=== PATIENT | female | born 2000 | race Caucasian/White ===

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

== ENCOUNTER 2021-04-11 14:58 | Emergency (ER) | payer OTHER ==
[~2021-04-11] VITALS: Ht 154.9 cm; Wt 49.9 kg
[~2021-04-11 14:58] MED LIST changes: +CEPHALEXIN500 M1 PO; +NAPROXEN250 MG PO; +TYLENOL325 M1 PO
[2021-04-11 15:04] VITALS: BP 124/73
[2021-04-11 16:07] LABS: BILIRUBIN Negative (Negative); BLOOD Negative (Negative); CLARITY Clear (Clear); COLOR Yellow (Yellow); GLUCOSE Negative (Negative); KETONE Negative (Negative); LEUKO ESTERASE Negative (Negative); NITRITE Negative (Negative); PH 6.5 (4.5-8.0); SPECIFIC GRAVITY 1.015 (1.001-1.030)
[2021-04-11 16:24] LABS: BACTERIA 2+
[2021-04-11 16:44] LABS: HEMATOCRIT 37.7 % (37.0-47.0); MEAN CELL VOLUME 91.1 fl (81.0-99.0); MEAN CORPUSCULAR HGB 29.5 pg (27.0-31.0); MEAN CORPUSCULAR HGB CONC 32.4 g/dl (33.0-37.0); MEAN PLATELET VOLUME 11.1 fl (9.6-12.3); PLATELET COUNT AUTOMATED 201 10*3/uL (130-400); RED BLOOD COUNT 4.14 10*6/uL (4.10-5.10); RED CELL DISTRI WIDTH 12.5 % (0-14.5); WHITE BLOOD COUNT 2.7 10*3/uL (4.8-10.8)
[2021-04-11 16:57] LABS: BUN 7 mg/dl (7-24); CHLORIDE 111 mmol/L (98-107); CREATININE 0.63 mg/dL (0.55-1.02); POTASSIUM 3.8 mmol/L (3.5-5.1); SODIUM 139 mmol/L (136-145)
[2021-04-11 17:18] LABS: ATYPICAL LYMPHS 1 % (0-0); BASOPHILS 2 % (0-1); BURR CELLS FEW; PLATELET SUFFICIENCY NORMAL (NORMAL); TOTAL CELLS COUNTED 100 #CELLS
[2021-04-11] MEDS ORDERED: ZOFRAN4 MG PO (17:34)
== END 2021-04-11 21:12 | disposition home or self-care (01) ==
LOC: ED 14:58
PROVIDERS: Emergency Medicine; Nurse Practitioner Family
DX: R50.9 Fever, unspecified (principal); Z20.822 Contact with and (suspected) exposure to COVID-19

== ENCOUNTER 2022-04-17 14:53 | Emergency (ER) | payer OTHER ==
[~2022-04-17] VITALS: Ht 154.9 cm; Wt 47.2 kg
[~2022-04-17 14:53] MED LIST changes: +ZOFRAN4 MG PO
[2022-04-17 15:12] VITALS: BP 127/67
== END 2022-04-17 15:41 | disposition home or self-care (01) ==
LOC: ED 14:53
DX: J40 Bronchitis, not specified as acute or chronic (principal); Z20.822 Contact with and (suspected) exposure to COVID-19

== ENCOUNTER 2022-10-18 23:16 | Emergency (ER) | payer OTHER ==
[~2022-10-18] VITALS: Ht 154.9 cm; Wt 49.0 kg
[2022-10-18 23:26] VITALS: BP 154/84
[2022-10-18] MEDS ORDERED: KEFLEX 500 MG E2 CAP PO (23:41)
== END 2022-10-18 23:47 | disposition home or self-care (01) ==
LOC: ED 23:16
DX: S90.812A Abrasion, left foot, initial encounter (principal); L03.115 Cellulitis of right lower limb; X58.XXXA Exposure to other specified factors, initial encounter; Y93.89 Activity, other specified; Y92.89 Other specified places as the place of occurrence of the external cause; Y99.8 Other external cause status

== ENCOUNTER 2023-09-25 15:39 | Emergency (ER) | payer BC ==
[~2023-09-25] VITALS: Ht 154.9 cm; Wt 49.9 kg
[~2023-09-25 15:39] MED LIST changes: +KEFLEX 500 MG E2 CAP PO
[2023-09-25 16:09] VITALS: BP 112/60
== END 2023-09-25 17:16 | disposition home or self-care (01) ==
LOC: ED 15:39
DX: S90.112A Contusion of left great toe without damage to nail, initial encounter (principal); W20.8XXA Other cause of strike by thrown, projected or falling object, initial encounter; Y93.89 Activity, other specified; Y92.89 Other specified places as the place of occurrence of the external cause; Y99.8 Other external cause status

== ENCOUNTER 2023-11-10 16:43 | Emergency (ER) | payer BC ==
[~2023-11-10] VITALS: Ht 154.9 cm; Wt 47.6 kg
[2023-11-10 16:55] VITALS: BP 105/59
[2023-11-10] MEDS ORDERED: Ketorolac Tromethamine 30 MG/ML VIAL IM ONE (17:15)
[2023-11-10] MEDS ORDERED: MELOXICAM15 MG PO (17:20)
== END 2023-11-10 18:29 | disposition home or self-care (01) ==
LOC: ED 16:43
DX: R09.1 Pleurisy (principal); R05.9 Cough, unspecified; F17.200 Nicotine dependence, unspecified, uncomplicated

== ENCOUNTER 2024-04-16 18:03 | Emergency (ER) | payer BC ==
[~2024-04-16 18:03] MED LIST changes: +MELOXICAM15 MG PO
[2024-04-16 18:20] VITALS: BP 125/77
[2024-04-16 18:34] LABS: BILIRUBIN Negative (Negative); BLOOD 3+ (Negative); CLARITY Cloudy (Clear); COLOR Red (Yellow); GLUCOSE Negative (Negative); KETONE Negative (Negative); LEUKO ESTERASE 3+ (Negative); NITRITE Negative (Negative); PH 7.5 (4.5-8.0); UROBILINOGEN 0.2 E.U./dl (0.0-1.0)
[2024-04-16 18:43] LABS: RBC TNTC rbc/hpf (0-2); WBC TNTC wbc/hpf (0-5)
[2024-04-16] MEDS ORDERED: Sulfamethoxazole/Trimethopri 1 TAB TAB PO ONE (18:55)
[2024-04-16] MEDS ORDERED: SEPTDS PO (18:58)
== END 2024-04-16 19:32 | disposition home or self-care (01) ==
LOC: ED 18:03
PROVIDERS: Internal Medicine
DX: N39.0 Urinary tract infection, site not specified (principal); Z88.8 Allergy status to other drugs, medicaments and biological substances; Z98.890 Other specified postprocedural states

== ENCOUNTER 2024-08-01 10:59 | Emergency (ER) | payer BC ==
[~2024-08-01] VITALS: Ht 154.9 cm; Wt 49.0 kg
[~2024-08-01 10:59] MED LIST changes: +SEPTDS PO
[2024-08-01] MEDS ORDERED: Dicyclomine Hydrochloride 20 MG/10 ML OSYR PO STA (12:15)
[2024-08-01] MEDS ORDERED: Lidocaine Hydrochloride 15 ML UDC PO STA (12:15)
[2024-08-01] MEDS ORDERED: MG-AL HYDROXIDE/SIMETICONE 30 ML UDC PO STA (12:15)
[2024-08-01 13:00] VITALS: BP 118/60
[2024-08-01] MEDS ORDERED: PEPCID20 MG PO (13:41)
== END 2024-08-01 14:09 | disposition home or self-care (01) ==
LOC: ED 10:59
DX: K29.00 Acute gastritis without bleeding (principal); R11.2 Nausea with vomiting, unspecified; Z88.6 Allergy status to analgesic agent

== ENCOUNTER 2024-12-03 09:25 | Emergency (ER) | payer BC ==
[~2024-12-03] VITALS: Wt 47.6 kg
[~2024-12-03 09:25] MED LIST changes: +PEPCID20 MG PO
[2024-12-03 09:40] VITALS: BP 117/60
[2024-12-03] MEDS ORDERED: Amoxicillin/Clavulanate Pota 875 MG TAB PO ONE (09:45)
[2024-12-03] MEDS ORDERED: AMOX-CLAV 875-1 EACH PO (09:48)
== END 2024-12-03 09:59 | disposition home or self-care (01) ==
LOC: ED 09:25
DX: J34.0 Abscess, furuncle and carbuncle of nose (principal); Z79.899 Other long term (current) drug therapy; Z88.8 Allergy status to other drugs, medicaments and biological substances